=== PATIENT | female | born 1950 | race Caucasian/White ===

== ENCOUNTER 2016-11-08 12:40 | Emergency (ER) | payer OTHER ==
[~2016-11-08] VITALS: Ht 165.1 cm; Wt 89.1 kg
[~2016-11-08 12:40] MED LIST: ACTONEL30 MG PO; ADVICOR PO; ASPIR 8181 M1 PO; Actonel PO; COUMADIN,JANTOVE1 MG PO; Coumadin dosing per PO; ENDOCET 5-3251 EACH PO; ESGIC 50-325-41 EACH PO; FEOSOL325 MG PO; GABAPENTIN300 MG PO; Glucophage XR,Fortam PO; JANUVIA100 MG PO; LASIX20 MG PO; LEVAQUIN500 MG PO; LEXAPRO20 MG PO; Lasix PO; NEURONTIN300 MG PO; NEURONTIN600 MG PO; NOVOLOG MI100 UNIT/4 SC; NOVOLOG PE100 UNITS/ SC; PERCOCET 5/31 TABLET PO; SINGULAIR10 MG PO; Singulair PO; WELCHOL3.75 GM PO; ZEBUTAL 50-3251 EACH PO; ZESTRIL10 MG PO; Zestril,Prinivil PO
[2016-11-08 15:14] LABS: HEMATOCRIT 38.2 % (36.0-46.0); MCH 30.1 PG (29.0-34.0); MCHC 34.3 G/DL (30.0-36.0); MCV 87.8 FL (83-99); PLATELET COUNT 277 K/uL (156-360); RBC DIS.WIDTH-CV 12.4 % (11.8-14.6); RBC DIS.WIDTH-SD 38.9 % (39-53); RED BLOOD COUNT 4.35 M/uL (3.80-5.20); WHITE BLOOD COUNT 8.2 K/uL (4.1-10.2)
[2016-11-08 15:22] LABS: CHLORIDE 102 mEq/L (99-109); POTASSIUM 3.8 mEq/L (3.7-5.4); SODIUM 142 mEq/L (136-147)
[2016-11-08 15:23] LABS: GLUCOSE 112 mg/dL (70-99)
[2016-11-08 15:25] LABS: ANION GAP 13 MEQ/L (2-14)
[2016-11-08 15:27] LABS: GFR ESTIMATE (CALCULATED) > 59 mL/min/
[2016-11-08 15:28] LABS: UREA NITROGEN (BUN) 11 mg/dL (9-23)
[2016-11-08] MEDS ORDERED: PREDNISONE20 MG PO (17:25)
[2016-11-08] MEDS ORDERED: ACYCLOVIR400 MG PO (17:25)
[2016-11-08 17:57] VITALS: BP 105/76
== END 2016-11-08 17:58 | disposition home or self-care (01) ==
LOC: EME 12:40
PROVIDERS: Emergency Medicine
DX: G51.0 Bell's palsy (principal); E11.65 Type 2 diabetes mellitus with hyperglycemia; I10 Essential (primary) hypertension
CPT/HCPCS: 70450; 70551; 71020; 80048; 85027; 93005; 99281; 99285; J7512

== ENCOUNTER 2018-01-07 20:08 | Observation (INO) | payer OTHER ==
[~2018-01-07] VITALS: Ht 165.1 cm; Wt 85.6 kg
[~2018-01-07 20:08] MED LIST changes: +ACYCLOVIR400 MG PO; -GABAPENTIN300 MG PO; +PREDNISONE20 MG PO
[2018-01-07 21:28] LABS: HEMATOCRIT 35.8 % (36.0-46.0); HEMOGLOBIN 12.4 G/DL (11.9-15.5); MCH 30.3 PG (29.0-34.0); MCHC 34.6 G/DL (30.0-36.0); MCV 87.5 FL (83-99); PLATELET COUNT 297 K/uL (156-360); RBC DIS.WIDTH-CV 12.3 % (11.8-14.6); RBC DIS.WIDTH-SD 39.8 % (39-53); RED BLOOD COUNT 4.09 M/uL (3.80-5.20); WHITE BLOOD COUNT 8.6 K/uL (4.1-10.2)
[2018-01-07 21:39] LABS: ALBUMIN 4.2 g/dL (3.2-4.8); CHLORIDE 103 mEq/L (99-109); POTASSIUM 3.8 mEq/L (3.7-5.4)
[2018-01-07 21:40] LABS: SODIUM 138 mEq/L (136-147)
[2018-01-07 21:42] LABS: GLUCOSE 168 mg/dL (70-99); TOTAL PROTEIN 7.6 g/dL (6.4-8.3)
[2018-01-07 21:44] LABS: TOTAL BILIRUBIN 0.4 mg/dL (0.0-1.0)
[2018-01-07 21:45] LABS: ALKALINE PHOSPHATASE 47 IU/L (3-129); CREATININE 0.7 mg/dL (0.6-1.3); GFR ESTIMATE (CALCULATED) > 59 mL/min/
[2018-01-07 21:47] LABS: AST (GOT) 20 IU/L (2-34); UREA NITROGEN (BUN) 14 mg/dL (9-23)
[2018-01-07 21:48] LABS: ALT (GPT) 21 IU/L (3-49)
[2018-01-07 21:49] LABS: APPEARANCE CLEAR ((CLEAR)); BILIRUBIN NEGATIVE; BLOOD NEGATIVE; COLOR STRAW ((YELLOW)); GLUCOSE (STRIP) NEGATIVE; KETONES NEGATIVE; LEUKOCYTES TRACE; NITRITE NEGATIVE; PROTEIN (STRIP) NEGATIVE; UROBILINOGEN 0.2 MG/DL (0.2-1.0)
[2018-01-07 21:52] LABS: BACTERIA RARE /HPF; EPITHELIAL CELLS RARE /HPF; MUCUS NONE SEEN /LPF; RED BLOOD CELLS 0-5 /HPF (0-5); UCUL ADDED? NO; WHITE BLOOD CELLS 0-5 /HPF (0-5)
[2018-01-07 21:52] LABS: TROP-I INTERPRETATION NEGATIVE; TROPONIN-I < 0.01 ng/mL (0.0-0.30)
[2018-01-08] MEDS ORDERED: CALCIUM 500 +1 EACH PO (01:58)
[2018-01-08] MEDS ORDERED: LIPITOR20 MG PO (01:58)
[2018-01-08] MEDS ORDERED: TRESIBA FL100 UNIT/1 SC (01:58)
[2018-01-08] MEDS ORDERED: NOVOLOG 10100 UNITS/ SC ×4 (01:59)
[2018-01-08 03:32] VITALS: BP 131/73
[2018-01-08 07:40] VITALS: BP 137/72
[2018-01-08 07:48] LABS: HDL CHOLESTEROL 42 MG/DL (Desirable>=50); LDL CHOLESTEROL 122 mg/dL (Desirable<100); NON-HDL CHOLESTEROL 178 mg/dL (Desirable<160); TOTAL CHOLESTEROL 220 mg/dL (Desirable<200); TRIGLYCERIDES 280 MG/DL (Normal: <150)
[2018-01-08 21:00] VITALS: BP 128/60
[2018-01-08 23:41] VITALS: BP 112/63
[2018-01-09 03:47] VITALS: BP 113/57
[2018-01-09 07:02] VITALS: BP 134/59
[2018-01-09 07:02] LABS: BASOPHIL (%) 0.7 % (0-1); BASOPHIL COUNT 0.1 K/uL (0-0.1); EOSINOPHIL (%) 3.2 % (0-5); EOSINOPHIL COUNT 0.2 K/uL (0-0.3); HEMATOCRIT 35.4 % (36.0-46.0); HEMOGLOBIN 11.9 G/DL (11.9-15.5); IMMATURE GRANULOCYTE (%) 0.1 % (0.0-0.7); LYMPHOCYTE (%) 30.8 % (15-42); LYMPHOCYTE COUNT 2.1 K/uL (1.0-2.8); MCH 29.6 PG (29.0-34.0); MCHC 33.6 G/DL (30.0-36.0); MCV 88.1 FL (83-99); MONOCYTE (%) 9.2 % (3-12); MONOCYTE COUNT 0.6 K/uL (0-0.8); NEUTROPHIL COUNT 3.9 K/uL (1.8-6.4); PLATELET COUNT 273 K/uL (156-360); RBC DIS.WIDTH-CV 12.2 % (11.8-14.6); RBC DIS.WIDTH-SD 39.3 % (39-53); RED BLOOD COUNT 4.02 M/uL (3.80-5.20); WHITE BLOOD COUNT 6.9 K/uL (4.1-10.2)
[2018-01-09 07:24] LABS: CHLORIDE 101 MEQ/L (99-109); CREATININE 0.6 MG/DL (0.6-1.3); GFR ESTIMATE (CALCULATED) > 59 mL/min/; GLUCOSE 170 mg/dL (70-99); POTASSIUM 4.4 MEQ/L (3.7-5.4); SODIUM 138 MEQ/L (136-147); UREA NITROGEN (BUN) 15 mg/dL (9-23)
[2018-01-09 13:09] LABS: HEMOGLOBIN A1c (GLYCOHEMOGLOB) 9.7 % (Below 5.7)
== END 2018-01-09 11:29 | disposition home or self-care (01) ==
LOC: EME 20:08 → EDOF 01-08 02:12 → ENRESERV 01-08 02:13 → 5WEST 01-08 03:23
PROVIDERS: Emergency Medicine; Internal Medicine
DX: R20.2 Paresthesia of skin (principal); E11.65 Type 2 diabetes mellitus with hyperglycemia; M25.511 Pain in right shoulder; R68.84 Jaw pain; E11.42 Type 2 diabetes mellitus with diabetic polyneuropathy; G47.33 Obstructive sleep apnea (adult) (pediatric); H53.8 Other visual disturbances; I11.0 Hypertensive heart disease with heart failure; I50.9 Heart failure, unspecified; E78.5 Hyperlipidemia, unspecified; J44.9 Chronic obstructive pulmonary disease, unspecified; H35.30 Unspecified macular degeneration; F32.9 Major depressive disorder, single episode, unspecified; F41.9 Anxiety disorder, unspecified; Z79.4 Long term (current) use of insulin; Z91.14 Patient's other noncompliance with medication regimen; Z91.19 Patient's noncompliance with other medical treatment and regimen; Z90.49 Acquired absence of other specified parts of digestive tract; Z90.710 Acquired absence of both cervix and uterus; Z82.49 Family history of ischemic heart disease and other diseases of the circulatory system; Z79.82 Long term (current) use of aspirin
CPT/HCPCS: 70450; 70551; 71045; 80048; 80053; 80061; 81003; 82948; 83036; 84484; 85025; 85027; 93005; 93880; 99281; 99285; G0378; J1644; J1815